=== PATIENT | male | born 1970 | race American Indian/Alaskan Native ===

== ENCOUNTER 2017-06-01 16:02 | Emergency (ER) | payer MEDICAID ==
--- NOTE | 2017-06-01 16:16 | C.PDOC ---
History Of Present Illness 47 y/o male with history of asthma presents to ED with c/o chest tightness and difficulty breathing. 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 He reports that was drinking water throughout the day but became dizzy, lightheaded, and weak. Pt states he asked supervisor sandblaster to take a break but was denied. Pt reports he felt trouble breathing, with chest tightness. Patient states he also started having cramps and muscle pains in arms and legs. Notes the truck he was working in was very justus. Denies headache, syncopal episode, nausea, vomiting, or other associated symptoms. Time Seen by Provider: 06/01/17 16:05 Chief Complaint (Nursing): Shortness Of Breath History Per: Patient History/Exam Limitations: no limitations Onset/Duration Of Symptoms: Hrs Current Symptoms Are (Timing): Better Current Respiratory Medications: See Home Med List Associated Symptoms: Dizziness, Musle Spasms In Hands Or Feet. denies: Fever, Chills Recent travel outside of the [place]: No Past Medical History Reviewed: Historical Data, Nursing Documentation, Vital Signs Vital Signs: Last Vital Signs Temp 97.5 F L 06/01/17 16:13 Pulse 110 H 06/01/17 16:13 Resp 16 06/01/17 16:28 BP 137/80 06/01/17 16:13 Pulse Ox 99 06/01/17 16:13 - Medical History PMH: Asthma Family History: States: Unknown Family Hx Review Of Systems Except As Marked, All Systems Reviewed And Found Negative. Constitutional: Negative for: Fever, Chills Respiratory: Positive for: Shortness of Breath, Other (chest tightness) Gastrointestinal: Negative for: Nausea, Vomiting, Abdominal Pain Skin: Negative for: Rash Neurological: Positive for: Dizziness. Negative for: Headache Physical Exam - Physical Exam Appears: Non-toxic, Other (awake and alert, sweating profusely, drinking water) Skin: Normal Color, Warm, Dry Head: Atraumatic, Normacephalic Eye(s): bilateral: Normal Inspection, PERRL, EOMI Nose: Normal Oral Mucosa: Moist Chest: Symmetrical Cardiovascular: Rhythm Regular Respiratory: Normal Breath Sounds, No Accessory Muscle Use, No Rales, No Rhonchi , No Wheezing Gastrointestinal/Abdominal: Soft, No Tenderness, No Guarding, No Rebound Back: Normal Inspection Extremity: Normal ROM, Capillary Refill (< 2 sec.) Neurological/Psych: Oriented x3, Normal Speech, Normal Cognition ED Course And Treatment - Laboratory Results Result Diagrams: 06/01/17 16:53 06/01/17 16:53 Lab Interpretation: Abnormal (WBC slightly elevated, Na 131, K+ 3.3, Cl 90, HCO3 25, glc 269, CPK 683) ECG: Interpreted By Me ECG Rhythm: Sinus Tachycardia (with LVH and Q waves III, AVF.) ECG Interpretation: Abnormal O2 Sat by Pulse Oximetry: 99 Pulse Ox Interpretation: Normal Reevaluation Time: 17:57 Reassessment Condition: Improved (Patient feels much better. No further muscle pain or weakness or shortness of breath.) Disposition Counseled Patient/Family Regarding: Studies Performed, Diagnosis, Need For Followup - Disposition Referrals: [facility] [Outside] Disposition: HOME/ ROUTINE Disposition Time: 17:57 Condition: IMPROVED Instructions: Heat Exhaustion (ED) Forms: [employer] (Tajik) - Clinical Impression Clinical Impression: Heat exhaustion - Scribe Statement The provider has reviewed the documentation as recorded by the Scribe SM All medical record entries made by the Scribe were at my direction and personally dictated by me. I have reviewed the chart and agree that the record accurately reflects my personal performance of the history, physical exam, medical decision making, and the department course for this patient. I have also personally directed, reviewed, and agree with the discharge instructions and disposition.
[2017-06-01 16:57] LABS: BASO # 0.1 K/uL (0.0-0.2); BASO % 0.4 % (0.0-2.0); EOS # 0.1 K/uL (0.0-0.7); EOS % 0.4 % (0.0-4.0); HEMATOCRIT 46.7 % (35.0-51.0); LYMPH # 1.8 K/uL (1.0-4.3); LYMPH % 13.3 % (20.0-40.0); MEAN CELL VOLUME 85.5 fL (80.0-94.0); MEAN CORPUSCULAR HEMOGLOBIN 27.6 pg (27.0-31.0); MEAN CORPUSCULAR HGB CONC 32.3 g/dL (33.0-37.0); MEAN PLATELET VOLUME 8.3 fL (7.2-11.7); MONO # 1.6 K/uL (0.0-0.8); MONO % 12.1 % (0.0-10.0); RED CELL DISTRIBUTION WIDTH 14.2 % (11.5-14.5); WHITE BLOOD COUNT 13.2 K/uL (4.8-10.8)
[2017-06-01 17:05] LABS: CHLORIDE 90 mmol/L (98-107); POTASSIUM 3.3 mmol/L (3.6-5.2); SODIUM 131 mmol/L (132-148)
[2017-06-01 17:07] LABS: BILIRUBIN,TOTAL 0.7 mg/dL (0.2-1.3); GFR AFRICAN-AMERICAN > 60
[2017-06-01 17:08] LABS: ALB/GLOB RATIO 1.1 (1.0-2.1); ALKALINE PHOSPHATASE 78 U/L (38-126); ALT/SGPT 57 U/L (21-72); AST/SGOT 44 U/L (17-59); BLOOD UREA NITROGEN 19 mg/dL (9-20); CALCIUM 9.2 mg/dl (8.6-10.4); CARBON DIOXIDE 25 mmol/L (22-30); GLUCOSE,RANDOM 269 mg/dL (75-110); TOTAL PROTEIN 8.1 g/dL (6.3-8.3)
[2017-06-01 17:09] LABS: MAGNESIUM 1.4 mg/dL (1.6-2.3)
[2017-06-01 17:11] LABS: RBC URINE 2 /hpf (0-3); URINE BACTERIA RARE (<OCC); URINE BILIRUBIN NEGATIVE (NEGATIVE); URINE BLOOD NEGATIVE (NEGATIVE); URINE COLOR Yellow (YELLOW); URINE GLUCOSE (UA) 2+ mg/dL (Normal); URINE KETONE TRACE mg/dL (NEGATIVE); URINE LEUKOCYTE ESTERASE TRACE Leu/uL (Negative); URINE PROTEIN NEGATIVE (NEGATIVE); URINE UROBILINOGEN NORMAL mg/dL (0.2-1.0); WBC URINE 15 /hpf (0-5)
[2017-06-01] MEDS ORDERED: Sodium Chloride 0.9% 1,000 ML IV ONE (17:22)
[2017-06-01] MEDS ORDERED: Sodium Chloride 0.9% 1,000 ML ONE (17:28)
[2017-06-01 18:14] VITALS: BP 144/62; PULSE 94; RESP 20; TEMP 97.6; O2SAT 98
--- NOTE | 2017-06-04 18:08 | CARD ---
APPROVED REPORT EKG Measurement Heart [id number] VA [id number] <Conclusion> Sinus tachycardia Possible Left atrial enlargement Left ventricular hypertrophy Inferior infarct, age undetermined Abnormal ECG
== END 2017-06-01 18:19 | disposition home or self-care (01) ==
LOC: C.ER 16:02
DX: T67.5XXA Heat exhaustion, unspecified, initial encounter (principal); X58.XXXA Exposure to other specified factors, initial encounter
CPT/HCPCS: 80053; 81001; 82550; 83735; 85025; 93005; 96360; 99285; J7040